=== PATIENT | female | born 1955 | race Caucasian/White ===

== ENCOUNTER 2019-10-22 10:30 | Outpatient (CLI) | payer MEDICARE, BC, SELFPAY ==
--- NOTE | 2019-10-28 23:46 | ONC FU_ITS ---
Dr. Brooks Patient Follow-Up Note Patient: MONET MUÑOZ Unit #: [id number]: 1955 Dicatated By: Clark Brooks M.D.Date of Visit:Oct 22, 2019 Onc Med Follow-up/Prog Note Chief Complaint: Elevated platelet count. History of Present Illness: This is a 64 year-old woman with a mild thrombocytosis. Over a period of several years she had been noted to have mildly elevated platelet counts. As of 02/18/2019 her CBC showed normal hemoglobin at 13.8 g with hematocrit 40.7%. The white blood cell count was 6600. The platelet count was mildly elevated at 409,000. Chem profile at that time was unremarkable except for slightly elevated SGOT and SGPT with normal alkaline phosphatase and bilirubin levels. A prior CBC from 10/11/2018 had shown similar findings with hemoglobin 13.8 g, white blood cell count 7400, and platelet count 449,000. I had seen her initially on 04/16/2019. Her further laboratory evaluation on 04/24/2019 included CBC showing hemoglobin 13.9 g, white blood cell count 6700, and mildly elevated platelet count at 407,000. Her LDH level was slightly elevated at 222/214 U/L. On her studies the JAK2 V617 F mutation, the JAK2 exon 12 mutation, the Calreticulin exon 9 mutation, and the MPL exon 10 mutation were not detected. With her platelet count is mildly elevated, observation/expectant management was recommended. Her other medical illnesses incldue hypertension, hyperlipidemia, GERD, and degenerative arthritis. She also has had significant depression. Her only surgery was a hysterectomy/bilateral salpingo-oophorectomy in 1998. She is a nonsmoker. INTERIM HISTORY: A repeat CBC in June 2019 showed similar findings with hemoglobin 13.9 g, white blood cell count 7500, and platelet count 406,000. She is seen for a follow-up visit. She says her energy comes and goes. Her activity is somewhat limited. Her ECOG score is 1. She has good appetite. She has gained weight. She does not have fever or night sweats. She occasionally wakes up feeling warm. She has no shortness of breath, cough, or chest pain. She has no GI/ complaints other than occasional acid reflux, which she manages with [id number]-[id number] medication. She has some low back pain, mainly when she gets first gets up in the morning or when she overdoes it. She has occasional headache. She has no focal neurologic symptoms. Medications: Align 1 Capsule Oral daily, Cyclobenzaprine HCl 1 (5 mg) Tablet Oral at bedtime, Esomeprazole Magnesium 1 (40 mg) Capsule Delayed Release Oral every am, Eucrisa (2 %) Ointment Topical Take as Directed, Ibuprofen Capsule Oral PRN, Losartan Potassium 1 (25 mg) Tablet Oral at bedtime, Losartan Potassium-HCTZ 1 (50-12.5 mg) Tablet Oral every am, Mometasone Furoate (0.1 %) Cream Topical Take as Directed, One-A-Day Womens VitaCraves 2 Tablet, chewable Oral daily, Simvastatin 1 (20 mg) Tablet Oral daily, SudoGest 1 (30 mg) Tablet Oral b.i.d. PRN, Zantac 1 (150 mg) Tablet Oral daily Allergies: Cephalexin, Codeine Sulfate, and Morphine Sulfate. Review of Systems: Constitutional - Her energy comes and goes. Her activity is somewhat limited. Her appetite is good. She has gained some weight. No fever or night sweats. She occasionally wakes up feeling warm. ECOG score is 1her sinuses lately have been okay., ENMT - Her sinuses are OK now. No mouth sores. No sore throat or difficulty swallowing, Hematologic/Lymphatic - No abnormal bruising or bleeding, Respiratory - No shortness of breath. No cough. No pleuritic pain or hemoptysis, Cardiovascular - No angina pain. No palpitations, Gastrointestinal - No nausea or vomiting. She occasionallly has acid reflux. No diarrhea or constipation. No blood in the stool or black stools, Genitourinary (F) - No dysuria or hematuria. No urinary frequency. No urgency or incontinence, Musculoskeletal - She has pain in her lower back, mainly when she first gets up in the morning or she overdoes it, Neurologic - She has occasional headache. No dizziness. No numbness/paresthesias or other focal neurologic symptoms, Psychiatric - She has s lot of stress. She still has some depression following her 's in June of 2017. She sometimes has difficulty sleeping. Vital Signs: Performed on Oct 22, 2019 10:03 Height - 63.00 in Weight - 148 lbs (HIGH) BSA - 1.70 sq.m BMI - 26.22 Temperature - 97.8 F (LOW) Pulse - 89 /min Respiration - 15 /min BP - 140/90 mm(hg) O2 Sat - 95 % (LOW) Pain - 3 Physical Examination: Constitutional - She looks good generally, Eyes - Sclerae nonicteric. Conjunctivae clear, ENMT - No lesions noted in the oral cavity, Hematologic/Lymphatic - No cervical, clavicular, or axillary adenopathy, Respiratory - Lungs are clear with good air movement bilaterally, Cardiovascular - Heart rhythm is regular. There is no murmur, gallop, or rub noted, Abdomen - Soft. Liver and spleen are not enlarged. There is no abdominal mass or ascites noted and there is no inguinal adenopathy, Extremities - No edema, Neurologic - No focal neurologic deficits noted. Lab/Imaging: Test performed on Oct 22, 2019 09:33 Glucose 105 mg/dL BUN 16 mg/dL Creatinine 0.74 mg/dL Cr Clearance (Est) 80.33 mL/min Sodium 138 mmol/L Potassium 4.1 mmol/L Chloride 96 mmol/L CO2 28 mmol/L Calcium 10.2 mg/dL Protein, Total 8.1 g/dL Albumin 5.3 g/dL Bilirubin, Total 0.5 mg/dL Alkaline Phosphatase 87 IU/L AST (SGOT) 42 IU/L ALT (SGPT) 60 IU/L WBC 6.5 10^9/L RBC 4.80 10^12/L HGB 14.5 g/dL HCT 43.7 % MCV 91.0 fl MCH 30.2 pg MCHC 33.2 g/dL RDW 13.1 % Platelet Count 418 10^9/L MPV 8.9 fL Neutrophils (Gran) 3.73 10^9/L Lymphocytes 1.98 10^9/L Monocytes 0.65 10^9/L Eosinophils 0.13 10^9/L Basophils 0.03 10^9/L Manual Lymphocytes 30 % Manual Monocytes 10 % Manual Eosinophils 2 % Manual Basophils 1 % Impression: 1. Patient with mild thrombocytosis of uncertain etiology. On her clonal studies the JAK2 V617 F mutation, the JAK2 exon 12 mutation, the Calreticulin exon 9 mutation, and the MPL exon 10 mutation were not detected. Her other medical illnesses include: 2. Hypertension. 3. Hyperlipidemia. 4. GERD. 5. Degenerative arthritis. 6. Eczema. 7. Depression. Thus far during follow-up her clinical status has remained stable, and her platelet count has remained just borderline high to slightly elevated. Overall, the clinical picture appears most consistent with normal variation. Plan: She remains on observation/expectant management. She is having laboratory studies rechecked with Dr. Lomeli every 6 months, which should be sufficient for monitoring the thrombocytosis. I will just plan to see her again in one year. Signed By: Clark Brooks M.D. <<Signature on File>>
== END 2019-10-22 10:31 | disposition home or self-care (01) ==
LOC: STFRANCIS 10-23 10:55
PROVIDERS: Family Provider Family Medicine; Visit Provider Internal Medicine Medical Oncology
DX: D47.3 Essential (hemorrhagic) thrombocythemia (principal); I10 Essential (primary) hypertension; E78.5 Hyperlipidemia, unspecified; K21.9 Gastro-esophageal reflux disease without esophagitis; M19.90 Unspecified osteoarthritis, unspecified site; F32.9 Major depressive disorder, single episode, unspecified; L30.9 Dermatitis, unspecified; R79.89 Other specified abnormal findings of blood chemistry
CPT/HCPCS: G0463

== ENCOUNTER 2020-10-20 10:00 | Outpatient (CLI) | payer MEDICARE, BC, SELFPAY ==
--- NOTE | 2020-10-23 16:32 | ONC FU_ITS ---
Dr. Brooks Patient Follow-Up Note Patient: She Baumann Unit #: [id number]: 1955 Dicatated By: Clark Brooks M.D.Date of Visit:Oct 20, 2020 Onc Med Follow-up/Prog Note Chief Complaint: Elevated platelet count. History of Present Illness: This is a 65 year-old woman with a mild thrombocytosis. Over a period of several years she had been noted to have mildly elevated platelet counts. As of 02/18/2019 her CBC showed normal hemoglobin at 13.8 g with hematocrit 40.7%. The white blood cell count was 6600. The platelet count was mildly elevated at 409,000. Chem profile at that time was unremarkable except for slightly elevated SGOT and SGPT with normal alkaline phosphatase and bilirubin levels. A prior CBC from 10/11/2018 had shown similar findings with hemoglobin 13.8 g, white blood cell count 7400, and platelet count 449,000. I had seen her initially on 04/16/2019. Her further laboratory evaluation on 04/24/2019 included CBC showing hemoglobin 13.9 g, white blood cell count 6700, and mildly elevated platelet count at 407,000. Her LDH level was slightly elevated at 222/214 U/L. On her studies the JAK2 V617 F mutation, the JAK2 exon 12 mutation, the Calreticulin exon 9 mutation, and the MPL exon 10 mutation were not detected. With her platelet count is mildly elevated, observation/expectant management was recommended. Her other medical illnesses incldue hypertension, hyperlipidemia, GERD, and degenerative arthritis. She also has had significant depression. Her only surgery was a hysterectomy/bilateral salpingo-oophorectomy in 1998. She is a nonsmoker. INTERIM HISTORY: A repeat CBC in June 2019 showed similar findings with hemoglobin 13.9 g, white blood cell count 7500, and platelet count 406,000. She continued observation/expectant management. She is seen for a follow-up visit. She has been feeling good generally. She had been concerned about possible cardiac symptoms, and she was evaluated with echocardiogram, which reportedly looked good. She has since then been eating better and she has been walking regularly. Her weight is down 10 pounds, and she has been feeling better generally. Her ECOG score is 0. She does not have fever or night sweats. She has no shortness of breath, cough, or chest pain. She has no GI or complaints. She has been having joint pain, particularly in the right knee and left shoulder. She is also been having back pain. She has been taking ibuprofen. She does not complain of headache or dizziness. She has no focal neurologic symptoms, but she says her hands and feet feel cold all the time. Medications: Cyclobenzaprine HCl 1 (5 mg) Tablet Oral daily, Esomeprazole Magnesium 1 (40 mg) Capsule Delayed Release Oral every am, Rqixpq-Ytova-Wftp Ac-Ca Fructo 1 Tablet Oral daily, hydroCHLOROthiazide (12.5 mg) Tablet Oral every am, Ibuprofen Capsule Oral PRN, Losartan Potassium 1 (25 mg) Tablet Oral b.i.d., One-A-Day Womens VitaCraves 2 Tablet, chewable Oral daily, Simvastatin 1 (20 mg) Tablet Oral daily, SudoGest 1 (30 mg) Tablet Oral b.i.d. PRN Allergies: Cephalexin, Codeine Sulfate, Doxycycline Monohydrate, and Morphine Sulfate. Vital Signs: Performed on Oct 20, 2020 10:26 Height - 63.00 in Weight - 135.6 lbs (LOW) BSA - 1.64 sq.m BMI - 24.02 Temperature - 98.5 F Pulse - 76 /min Respiration - 16 /min BP - 140/98 mm(hg) O2 Sat - 98 % Pain - 3 Physical Examination: Constitutional - She looks good generally, Eyes - Sclerae nonicteric. Conjunctivae clear, ENMT - No lesions noted in the oral cavity, Hematologic/Lymphatic - No cervical, clavicular, or axillary adenopathy, Respiratory - Lungs are clear with good air movement bilaterally, Cardiovascular - Heart rhythm is regular. There is a I/ systolic murmur. There is no gallop or rub noted, Abdomen - Soft. Liver and spleen are not enlarged. There is no abdominal mass or ascites noted and there is no inguinal adenopathy, Extremities - No edema. She has good peripheral pulses in both upper and lower extremities, Neurologic - No focal neurologic deficits noted. Lab/Imaging: Test performed on Oct 12, 2020 10:53 Cholesterol, Total 191 mg/dL Glucose 93 mg/dL LDH, Total 170 IU/L BUN 12 mg/dL HDL Cholesterol 67 mg/dL Creatinine 0.90 mg/dL LDL Cholesterol 107 mg/dL Cr Clearance (Est) 59.70 mL/min VLDL Cholesterol 124 mg/dL Triglycerides 86 mg/dL Sodium 136 mmol/L Potassium 4.5 mmol/L Chloride 96 mmol/L CO2 27 mmol/L Calcium 10.5 mg/dL Protein, Total 7.4 g/dL Albumin 5.3 g/dL Bilirubin, Total 0.4 mg/dL Alkaline Phosphatase 81 IU/L AST (SGOT) 25 IU/L ALT (SGPT) 21 IU/L WBC 7.5 10^9/L RBC 4.84 10^12/L HGB 14.6 g/dL HCT 44.6 % MCV 92.1 fl MCH 30.2 pg MCHC 32.7 g/dL RDW 11.9 % Platelet Count 444 10^9/L MPV 9.4 fL Neutrophils (Gran) 5.31 10^9/L Lymphocytes 1.63 10^9/L Monocytes 0.47 10^9/L Eosinophils 0.04 10^9/L Basophils 0.03 10^9/L Manual Lymphocytes 22 % Manual Monocytes 6 % Manual Eosinophils 1 % Manual Basophils 0 % Problem List: 1. Mild thrombocytosis of uncertain etiology. On her clonal studies the JAK2 V617 F mutation, the JAK2 exon 12 mutation, the Calreticulin exon 9 mutation, and the MPL exon 10 mutation were not detected. 2. Hypertension. 3. Hyperlipidemia. 4. GERD. 5. Degenerative arthritis. 6. Eczema. 7. Depression. Problems Addressed with this Encounter and Plan: Mild thrombocytosis of uncertain etiology. Essential thrombocythemia is not entirely excluded, but it does appear to be unlikely, as her molecular studies were negative and the thrombocytosis has not been progressive. As her platelet count remains just mildly elevated, she can remain on observation/expectant management. At this point she will continue her regular follow-up with Noa Chapa. I can see her again as needed if her platelet count increases or there is other significant change in her blood count. Signed By: Clark Brooks M.D. <<Signature on File>>
== END 2020-10-20 10:01 | disposition home or self-care (01) ==
LOC: ONCMED 10-21 09:41
PROVIDERS: Family Provider Family Medicine; Visit Provider Internal Medicine Medical Oncology
DX: D47.3 Essential (hemorrhagic) thrombocythemia (principal)
CPT/HCPCS: G0463

== ENCOUNTER 2022-08-08 13:34 | Outpatient (CLI) | payer MEDICARE, BC, SELFPAY ==
--- NOTE | 2022-08-08 13:39 | MM_ITS ---
WS: [id number] BILATERAL 3D TOMOSYNTHESIS DIGITAL SCREENING MAMMOGRAPHY WITH CAD CLINICAL INFORMATION: SCREENING HISTORY: Screening mammogram. No current complaints. COMPARISON: June 16, 2021 TECHNIQUE: Bilateral CC and MLO views. FINDINGS: Scattered fibroglandular densities bilaterally. No suspicious focal mass, asymmetry, calcifications, or architectural distortion. No evidence of malignancy. A few incidental punctate and lucent centered calcifications. MM/[id number] IMPRESSION: BI-RADS: 2-Benign FOLLOW UP: 1 Year Follow-up Recommend return to annual screening mammography.
== END 2022-08-08 13:35 | disposition home or self-care (01) ==
LOC: RAD 13:34
PROVIDERS: PCP Nurse Practitioner Family; Visit Provider Nurse Practitioner Family
DX: Z12.31 Encounter for screening mammogram for malignant neoplasm of breast (principal)
CPT/HCPCS: 77063; 77067

== ENCOUNTER → 2022-11-15 09:43 | Outpatient (BNVA) | payer MEDICARE, BC, SELFPAY | PROVIDERS: PCP Nurse Practitioner Family; Visit Provider Internal Medicine Rheumatology | DX: R76.8 Other specified abnormal immunological findings in serum (principal); L30.9 Dermatitis, unspecified; M25.50 Pain in unspecified joint; M19.90 Unspecified osteoarthritis, unspecified site; Z79.899 Other long term (current) drug therapy | CPT/HCPCS: 36415; 80076; 81001; 82306; 82565; 82570; 84156; 85025; 86160; 86162; 86200; 86235; 86255; 86376; 86800; 99204 ==

== ENCOUNTER → 2023-06-28 11:44 | Outpatient (BNVA) | payer MEDICARE, BC, SELFPAY | PROVIDERS: PCP Nurse Practitioner Family; Visit Provider Nurse Practitioner Family | DX: L30.0 Nummular dermatitis (principal); L82.1 Other seborrheic keratosis; L57.8 Other skin changes due to chronic exposure to nonionizing radiation; L81.4 Other melanin hyperpigmentation; D22.62 Melanocytic nevi of left upper limb, including shoulder | CPT/HCPCS: 99213 ==

== ENCOUNTER 2023-08-11 09:57 | Oncology outpatient (recurring) (ONCR) | payer MEDICARE, BC, SELFPAY ==
[2023-08-11 11:47] LABS: Basophils % 0.5 %; Eosinophils % 0.4 %; Hematocrit 38.2 % (36-47); Lymphocytes # 1.5 10^3/uL (0.8-4.8); Lymphocytes % 19.5 %; Mean Corpuscular HGB Conc 33.8 g/dL (30-55); Mean Corpuscular Hemoglobin 30.2 pg (27-33); Mean Corpuscular Volume 89.5 fl (85-98); Mean Platelet Volume 8.5 fL (7.4-10.4); Monocytes # 0.5 10^3/uL (0.2-0.9); Monocytes % 6.7 %; Neutrophils # 5.59 10^3/uL (1.8-7.7); Neutrophils % 72.5 %; Nucleated Red Blood Cells % 0 %; Platelet Count 452 10^3/cmm (157-399); Red Blood Count 4.27 10^6/uL (3.85-5.65); Red Cell Distribution Width 12.1 % (12.1-15.1); White Blood Count 7.71 10^3/uL (3.29-11.43)
[2023-08-11 11:58] LABS: LAB Peripheral Smear Sent for Review
[2023-08-11 12:07] LABS: Alanine Aminotransferase 22 U/L (0-33); Albumin Level 4.9 g/dL (3.5-5.2); Alkaline Phosphatase 81 U/L (35-105); Anion Gap 16.7 (5-19); Aspartate Amino Transferase 23 U/L (0-32); Blood Urea Nitrogen 13 mg/dL (8-23); Calcium 9.7 mg/dL (8.5-10.5); Carbon Dioxide 25 mmol/L (22-29); Chloride 96 mmol/L (98-107); Creatinine Clr Calc Pharmacy 60.2251; Ferritin 85 ng/mL (15-150); Globulin 2.3 g/dL (1.3-4.6); Glomerular Filtration Rate 99.4 mL/min (90-130); Glucose 91 mg/dL (65-115); Iron 68 ug/dL (37-145); Lactate Dehydrogenase 162 U/L (135-214); Osmolality Calculated 278 mOsm/kg (285-295); Percent Saturation 16.8 % (20-50); Potassium 3.7 mmol/L (3.5-5.1); Sodium 134 mmol/L (136-145); Total Bilirubin 0.5 mg/dL (0.15-1.2); Total Iron Binding Capacity 403 mcg/dl; Total Protein 7.2 g/dL (6.6-8.7); Unsaturated Iron Binding 335 ug/dL (112-347)
[2023-08-11 12:34] LABS: Hepatitis A Antibody IgM Non-Reactive (Nonreactive); Hepatitis B Core AB, Total Non-Reactive (Nonreactive); Hepatitis B Surface Antigen Non-Reactive (Nonreactive); Hepatitis C Virus Antibody Non-Reactive (Nonreactive)
[2023-08-11 12:36] LABS: Hepatitis B Surface AB < 3.5 (11.5-1000)
[2023-08-14 04:24] LABS: CMV DNA By PCR NOT DETECTED; CMV DNA, QN PCR NOT DETECTED Log IU/mL; SOURCE WHOLE BLOOD
[2023-08-14 06:55] LABS: Epstein Barr Virus DNA PCR NOT DETECTED; Epstein Barr Virus DNA QN PCR NOT DETECTED copies/mL; Epstein Barr Virus Source blood
[2023-08-15 10:23] LABS: Soluble Transferrin Receptor 0.97 mg/L (0.76-1.76)
[2023-08-19 18:25] LABS: CALR Exon 9 Mutation NOT DETECTED (NOT DETECTED); CSF3R Exon 14/17 Mutation NOT DETECTED (NOT DETECTED); JAK2 Exon 12 Mutation NOT DETECTED (NOT DETECTED); JAK2 V617 Block Specimen ID NG; JAK2 V617 Clinical Indication NG; JAK2 V617 Mutation NOT DETECTED (NOT DETECTED); JAK2 V617 Specimen Source NG; MPL Exon 12 Mutation NOT DETECTED (NOT DETECTED)
== END 2023-08-31 23:59 | disposition home or self-care (01) ==
PROVIDERS: PCP Nurse Practitioner Family; Visit Provider Internal Medicine
DX: D75.839 Thrombocytosis, unspecified (principal); R79.0 Abnormal level of blood mineral; M25.50 Pain in unspecified joint; Z79.899 Other long term (current) drug therapy; Z13.79 Encounter for other screening for genetic and chromosomal anomalies; R53.83 Other fatigue
CPT/HCPCS: 36415; 80053; 81270; 81279; 81339; 81479; 82728; 83540; 83550; 83615; 84238; 85025; 86705; 86706; 86709; 86803; 87340; 87496; 87798; 99204

== ENCOUNTER 2023-11-09 13:35 | Outpatient (CLI) | payer MEDICARE, BC, SELFPAY ==
--- NOTE | 2023-11-09 13:39 | USCV_ITS ---
Scot Baumannia Age: 68 Gender: F : 1955 Exam Date: 11/09/2023 14:17 Ordering Phys: Noa Chapa Technologist: YENNY [place]am [place] [facility] [place] Ind[place]: Family history of heart disease. Recheck BP: 150 / 93 HR: 79 Rhythm: Sinus Technical Quality: Adequate MEASUREMENTS (Male / Female) Normal Values 2D ECHO LV Diastolic Diameter PLAX 3.7 cm 4.2 - 5.9 / 3.9 - 5.3 cm LV Systolic Diameter PLAX 2.9 cm LV Chamber Size 2.6 cm IVS Diastolic Thickness 1.2 cm 0.6 - 1.0 / 0.6 - 0.9 cm IVS Systolic Thickness 1.1 cm LVPW Diastolic Thickness 1.2 cm 0.6 - 1.0 / 0.6 - 0.9 cm LVPW Systolic Thickness 1.2 cm RV Chamber Size 2.5 cm LVOT Diameter 2.0 cm LV Ejection Fraction 2D Teich 50.4 % LV Ejection Fraction MOD 2C 71.7 % LV Ejection Fraction 2C AL 72.5 % LA Diameter 2.2 cm LA Width 1.6 cm LA Height 2.5 cm RA Width 2.1 cm RA Height 3.1 cm Aorta at Sinotubular Diameter 3.5 cm IVC Diameter 1.2 cm M-MODE Aortic Annulus Diameter 3.6 cm LA Ao Ratio MM 0.6 MV E Point Septal Separation 0.1 cm DOPPLER AV Peak Velocity 129.0 cm/s LVOT Peak Velocity 119.0 cm/s AV Area Cont Eq vti 3.5 cm squared AV Area Cont Eq pk 2.9 cm squared MV Area PHT 4.5 cm squared Mitral E to A Ratio 0.7 MV E' Velocity 30.5 cm/s Mitral E to MV E' Ratio 6.0 Mitral E to LV E' Lateral Ratio 7.0 Mitral E to LV E' Septal Ratio 5.2 TR Peak Velocity 183.1 cm/s TR Peak Gradient 13.4 mmHg TR Mean Velocity 146.7 cm/s TR Mean Gradient 9.6 mmHg TR Velocity Time Integral 51.3 cm TV Peak E Velocity 50.0 cm/s Right Atrial Pressure 3.0 mmHg Pulmonary Artery Systolic Pressu 16.4 mmHg PV Peak Velocity 0.0 cm/s RV Acceleration Time 0.2 s RV Ejection Time 0.3 s RV AcT/ET 0.6 FINDINGS Left Ventricle Left ventricle is normal in size. LV systolic function is normal with EF of 60 to 65%. No regional wall motion abnormalities are seen. Grade 1 diastolic dysfunction Right Ventricle Grossly normal Right Atrium Normal in size Left Atrium Normal in size Mitral Valve Structurally normal mitral valve. Mild mitral regurgitation Aortic Valve Structurally normal aortic valve. Moderate aortic regurgitation. No significant stenosis. Tricuspid Valve Mild tricuspid regurgitation. Insufficient TR jet to evaluate RVSP. Pulmonic Valve Mild pulmonic regurgitation Pericardium Normal Aorta Ascending aorta is mildly dilated with diameter of 3.6 cm IVC Appears to be normal CONCLUSIONS LV systolic function is normal with EF of 60-65% Grade 1 diastolic dysfunction Mild mitral regurgitation Moderate aortic regurgitation Mild tricuspid regurgitation Mild pulmonic regurgitation No comparison studies are available. Alcides Jurado MD (Electronically Signed) Final Date: 23 November 2023 10:18 S
== END 2023-11-09 13:36 | disposition home or self-care (01) ==
LOC: RAD 13:36
PROVIDERS: PCP Nurse Practitioner Family; Visit Provider Nurse Practitioner Family
DX: I08.8 Other rheumatic multiple valve diseases (principal); Z82.49 Family history of ischemic heart disease and other diseases of the circulatory system
CPT/HCPCS: 93306

== ENCOUNTER 2023-11-09 14:42 | Outpatient (CLI) | payer MEDICARE, BC, SELFPAY ==
[2023-11-09 15:19] LABS: Basophils % 0.4 %; Eosinophils % 0.4 %; Lymphocytes # 1.8 10^3/uL (0.8-4.8); Lymphocytes % 22.2 %; Mean Corpuscular HGB Conc 33.2 g/dL (30-55); Mean Corpuscular Hemoglobin 29.4 pg (27-33); Mean Corpuscular Volume 88.6 fl (85-98); Mean Platelet Volume 8.3 fL (7.4-10.4); Monocytes # 0.5 10^3/uL (0.2-0.9); Monocytes % 6.3 %; Neutrophils # 5.72 10^3/uL (1.8-7.7); Neutrophils % 70.6 %; Nucleated Red Blood Cells % 0 %; Platelet Count 481 10^3/cmm (157-399); Red Blood Count 4.63 10^6/uL (3.85-5.65); Red Cell Distribution Width 12.4 % (12.1-15.1)
[2023-11-09 15:37] LABS: Alanine Aminotransferase 20 U/L (0-33); Albumin Level 4.8 g/dL (3.5-5.2); Alkaline Phosphatase 81 U/L (35-105); Anion Gap 14.8 (5-19); Aspartate Amino Transferase 24 U/L (0-32); Blood Urea Nitrogen 11 mg/dL (8-23); Calcium 9.9 mg/dL (8.5-10.5); Carbon Dioxide 28 mmol/L (22-29); Chloride 92 mmol/L (98-107); Ferritin 104 ng/mL (15-150); Globulin 2.9 g/dL (1.3-4.6); Glomerular Filtration Rate 122.3 mL/min (90-130); Glucose 103 mg/dL (65-115); Iron 112 ug/dL (37-145); Osmolality Calculated 272 mOsm/kg (285-295); Percent Saturation 26.9 % (20-50); Potassium 3.8 mmol/L (3.5-5.1); Sodium 131 mmol/L (136-145); Total Bilirubin 0.6 mg/dL (0.15-1.2); Total Iron Binding Capacity 416 mcg/dl; Total Protein 7.7 g/dL (6.6-8.7); Unsaturated Iron Binding 304 ug/dL (112-347)
[2023-11-14 14:00] LABS: Soluble Transferrin Receptor 0.97 mg/L (0.76-1.76)
== END 2023-11-09 14:43 | disposition home or self-care (01) ==
LOC: LAB 14:45
PROVIDERS: PCP Nurse Practitioner Family; Visit Provider Internal Medicine
DX: R79.0 Abnormal level of blood mineral (principal); D75.839 Thrombocytosis, unspecified; M25.50 Pain in unspecified joint
CPT/HCPCS: 36415; 80053; 82728; 83540; 83550; 84238; 85025

== ENCOUNTER → 2023-12-06 10:18 | Outpatient (BNVA) | payer MEDICARE, BC, SELFPAY | PROVIDERS: PCP Nurse Practitioner Family; Visit Provider Nurse Practitioner Family | DX: L57.8 Other skin changes due to chronic exposure to nonionizing radiation (principal); L81.4 Other melanin hyperpigmentation; D22.4 Melanocytic nevi of scalp and neck; L82.1 Other seborrheic keratosis | CPT/HCPCS: 99213 ==

== ENCOUNTER 2023-12-07 08:26 | Oncology outpatient (recurring) (ONCR) | payer MEDICARE, BC, SELFPAY ==
[2023-12-07 08:56] VITALS: BP 155/92; PULSE 88; RESP 18; TEMP 36.6; O2SAT 94
[2023-12-07 09:04] LABS: Basophils % 0.2 %; Eosinophils % 0.5 %; Hematocrit 39.1 % (36-47); Lymphocytes # 1.5 10^3/uL (0.8-4.8); Lymphocytes % 18.4 %; Mean Corpuscular HGB Conc 34.3 g/dL (30-55); Mean Corpuscular Hemoglobin 30.6 pg (27-33); Mean Corpuscular Volume 89.3 fl (85-98); Mean Platelet Volume 8.1 fL (7.4-10.4); Monocytes # 0.6 10^3/uL (0.2-0.9); Monocytes % 6.7 %; Neutrophils % 73.6 %; Nucleated Red Blood Cells % 0 %; Platelet Count 448 10^3/cmm (157-399); Red Blood Count 4.38 10^6/uL (3.85-5.65); Red Cell Distribution Width 12.5 % (12.1-15.1)
[2023-12-07 09:30] LABS: Alanine Aminotransferase 21 U/L (0-33); Albumin Level 4.7 g/dL (3.5-5.2); Alkaline Phosphatase 78 U/L (35-105); Anion Gap 11.3 (5-19); Aspartate Amino Transferase 27 U/L (0-32); Blood Urea Nitrogen 10 mg/dL (8-23); Calcium 9.8 mg/dL (8.5-10.5); Carbon Dioxide 30 mmol/L (22-29); Chloride 96 mmol/L (98-107); Creatinine Clr Calc Pharmacy 59.0797; Ferritin 97 ng/mL (15-150); Globulin 2.6 g/dL (1.3-4.6); Glomerular Filtration Rate 99.1 mL/min (90-130); Glucose 91 mg/dL (65-115); Iron 84 ug/dL (37-145); Osmolality Calculated 275 mOsm/kg (285-295); Percent Saturation 20.4 % (20-50); Potassium 4.3 mmol/L (3.5-5.1); Sodium 133 mmol/L (136-145); Total Bilirubin 0.5 mg/dL (0.15-1.2); Total Iron Binding Capacity 410 mcg/dl; Total Protein 7.3 g/dL (6.6-8.7); Unsaturated Iron Binding 326 ug/dL (112-347)
[2023-12-11 12:54] LABS: Soluble Transferrin Receptor 0.97 mg/L (0.76-1.76)
[2023-12-12 18:34] LABS: P190 BCR ALB1 NOT DETECTED; P190 BCR ALB1 Yes Test Yes; P210 BCR ALB1 NOT DETECTED; P210 BCR ALB1 Yes Test Yes; Prior Results NG; Source whole blood
== END 2023-12-31 23:59 | disposition home or self-care (01) ==
PROVIDERS: PCP Nurse Practitioner Family; Visit Provider Internal Medicine
DX: D75.839 Thrombocytosis, unspecified (principal); R79.0 Abnormal level of blood mineral; M25.50 Pain in unspecified joint; Z79.899 Other long term (current) drug therapy; Z13.79 Encounter for other screening for genetic and chromosomal anomalies; Z53.9 Procedure and treatment not carried out, unspecified reason
CPT/HCPCS: 36415; 80053; 81206; 81207; 82728; 83540; 83550; 84238; 85025; 99213

== ENCOUNTER 2024-03-12 11:24 | Oncology outpatient (recurring) (ONCR) | payer MEDICARE, BC, SELFPAY ==
[2024-03-12 11:43] LABS: Basophils % 0.3 %; Eosinophils # 0.1 10^3/uL (0.0-0.8); Eosinophils % 1.7 %; Hematocrit 39.7 % (36-47); Lymphocytes # 1.4 10^3/uL (0.8-4.8); Mean Corpuscular HGB Conc 33.8 g/dL (30-55); Mean Corpuscular Hemoglobin 29.8 pg (27-33); Mean Corpuscular Volume 88.2 fl (85-98); Mean Platelet Volume 8.3 fL (7.4-10.4); Monocytes # 0.4 10^3/uL (0.2-0.9); Monocytes % 6.6 %; Neutrophils # 4.41 10^3/uL (1.8-7.7); Neutrophils % 69.2 %; Nucleated Red Blood Cells % 0 %; Platelet Count 423 10^3/cmm (157-399); Red Cell Distribution Width 11.9 % (12.1-15.1); White Blood Count 6.37 10^3/uL (3.29-11.43)
[2024-03-12 12:00] LABS: Alanine Aminotransferase 87 U/L (0-33); Alkaline Phosphatase 77 U/L (35-105); Anion Gap 13.4 (5-19); Aspartate Amino Transferase 72 U/L (0-32); Blood Urea Nitrogen 8 mg/dL (8-23); Calcium 9.8 mg/dL (8.5-10.5); Carbon Dioxide 30 mmol/L (22-29); Chloride 89 mmol/L (98-107); Ferritin 139 ng/mL (15-150); Globulin 2.5 g/dL (1.3-4.6); Glomerular Filtration Rate 122.3 mL/min (90-130); Glucose 115 mg/dL (65-115); Iron 83 ug/dL (37-145); Osmolality Calculated 267 mOsm/kg (285-295); Percent Saturation 21.9 % (20-50); Potassium 3.4 mmol/L (3.5-5.1); Sodium 129 mmol/L (136-145); Total Bilirubin 0.7 mg/dL (0.15-1.2); Total Iron Binding Capacity 378 mcg/dl; Total Protein 7.5 g/dL (6.6-8.7); Unsaturated Iron Binding 295 ug/dL (112-347)
== END 2024-03-31 23:59 | disposition home or self-care (01) ==
PROVIDERS: Internal Medicine; PCP Nurse Practitioner Family; Visit Provider Nurse Practitioner Family
DX: D75.839 Thrombocytosis, unspecified (principal); R79.0 Abnormal level of blood mineral; M25.50 Pain in unspecified joint; Z79.899 Other long term (current) drug therapy
CPT/HCPCS: 36415; 80053; 82728; 83540; 83550; 85025; 99214

== ENCOUNTER 2024-06-18 13:11 | Oncology outpatient (recurring) (ONCR) | payer MEDICARE, BC, SELFPAY ==
[2024-06-18 14:06] LABS: Basophils % 0.4 %; Eosinophils % 0.4 %; Hematocrit 40.6 % (36-47); Lymphocytes # 1.4 10^3/uL (0.8-4.8); Lymphocytes % 17.9 %; Mean Corpuscular HGB Conc 33.3 g/dL (30-55); Mean Corpuscular Hemoglobin 30.3 pg (27-33); Mean Corpuscular Volume 91.2 fl (85-98); Mean Platelet Volume 8.4 fL (7.4-10.4); Monocytes # 0.7 10^3/uL (0.2-0.9); Monocytes % 9.5 %; Neutrophils # 5.55 10^3/uL (1.8-7.7); Neutrophils % 71.4 %; Nucleated Red Blood Cells % 0 %; Platelet Count 450 10^3/cmm (157-399); Red Blood Count 4.45 10^6/uL (3.85-5.65); Red Cell Distribution Width 12.4 % (12.1-15.1); White Blood Count 7.77 10^3/uL (3.29-11.43)
[2024-06-18 14:21] LABS: Alanine Aminotransferase 15 U/L (0-33); Albumin Level 4.8 g/dL (3.5-5.2); Alkaline Phosphatase 81 U/L (35-105); Anion Gap 16.3 (5-19); Aspartate Amino Transferase 19 U/L (0-32); Blood Urea Nitrogen 13 mg/dL (8-23); Calcium 9.9 mg/dL (8.5-10.5); Carbon Dioxide 28 mmol/L (22-29); Chloride 96 mmol/L (98-107); Ferritin 77 ng/mL (15-150); Globulin 2.4 g/dL (1.3-4.6); Glomerular Filtration Rate 99.1 mL/min (90-130); Glucose 78 mg/dL (65-115); Iron 93 ug/dL (37-145); Osmolality Calculated 281 mOsm/kg (285-295); Percent Saturation 25.1 % (20-50); Potassium 4.3 mmol/L (3.5-5.1); Sodium 136 mmol/L (136-145); Total Bilirubin 0.5 mg/dL (0.15-1.2); Total Iron Binding Capacity 370 mcg/dl; Total Protein 7.2 g/dL (6.6-8.7); Unsaturated Iron Binding 277 ug/dL (112-347)
== END 2024-07-01 23:59 | disposition home or self-care (01) ==
LOC: ONCMED 13:12
PROVIDERS: PCP Nurse Practitioner Family; Visit Provider Nurse Practitioner Family
DX: D75.839 Thrombocytosis, unspecified (principal)
CPT/HCPCS: 36415; 80053; 82728; 83540; 83550; 85025

== ENCOUNTER → 2024-06-28 11:00 | Outpatient (BNVA) | payer MEDICARE, BC, SELFPAY | PROVIDERS: PCP Nurse Practitioner Family; Visit Provider Nurse Practitioner Family | DX: L57.8 Other skin changes due to chronic exposure to nonionizing radiation (principal); L81.4 Other melanin hyperpigmentation; D22.4 Melanocytic nevi of scalp and neck; L82.1 Other seborrheic keratosis; Z91.014 Allergy to mammalian meats | CPT/HCPCS: 99213 ==

== ENCOUNTER 2024-07-25 13:45 | Oncology outpatient (recurring) (ONCR) | payer MEDICARE, BC, SELFPAY ==
[2024-07-25 14:16] LABS: Basophils % 0.3 %; Eosinophils # 0.1 10^3/uL (0.0-0.8); Eosinophils % 0.7 %; Hematocrit 38.6 % (36-47); Lymphocytes # 1.6 10^3/uL (0.8-4.8); Lymphocytes % 22.9 %; Mean Corpuscular HGB Conc 32.9 g/dL (30-55); Mean Corpuscular Hemoglobin 29.6 pg (27-33); Mean Platelet Volume 8.8 fL (7.4-10.4); Monocytes # 0.6 10^3/uL (0.2-0.9); Neutrophils # 4.69 10^3/uL (1.8-7.7); Neutrophils % 67.8 %; Nucleated Red Blood Cells % 0 %; Platelet Count 425 10^3/cmm (157-399); Red Blood Count 4.29 10^6/uL (3.85-5.65); White Blood Count 6.91 10^3/uL (3.29-11.43)
[2024-07-25 14:43] LABS: Alanine Aminotransferase 17 U/L (0-33); Albumin Level 4.8 g/dL (3.5-5.2); Alkaline Phosphatase 86 U/L (35-105); Anion Gap 14.2 (5-19); Aspartate Amino Transferase 22 U/L (0-32); Blood Urea Nitrogen 13 mg/dL (8-23); Calcium 9.4 mg/dL (8.5-10.5); Carbon Dioxide 28 mmol/L (22-29); Chloride 99 mmol/L (98-107); Creatinine Clr Calc Pharmacy 58.5294; Ferritin 67 ng/mL (15-150); Globulin 2.2 g/dL (1.3-4.6); Glucose 96 mg/dL (65-115); Iron 83 ug/dL (37-145); Osmolality Calculated 284 mOsm/kg (285-295); Percent Saturation 21.5 % (20-50); Potassium 4.2 mmol/L (3.5-5.1); Sodium 137 mmol/L (136-145); Total Bilirubin 0.5 mg/dL (0.15-1.2); Total Iron Binding Capacity 386 mcg/dl; Unsaturated Iron Binding 303 ug/dL (112-347)
== END 2024-08-01 23:59 | disposition home or self-care (01) ==
PROVIDERS: PCP Nurse Practitioner Family; Visit Provider Nurse Practitioner Family
DX: D75.839 Thrombocytosis, unspecified (principal); R79.0 Abnormal level of blood mineral; M25.50 Pain in unspecified joint; Z79.899 Other long term (current) drug therapy
CPT/HCPCS: 36415; 80053; 82728; 83540; 83550; 85025; 99213

== ENCOUNTER → 2024-09-30 10:45 | Outpatient (BNVA) | payer MEDICARE, BC, SELFPAY | PROVIDERS: PCP Nurse Practitioner Family; Visit Provider Nurse Practitioner Family | DX: L57.8 Other skin changes due to chronic exposure to nonionizing radiation (principal); L81.4 Other melanin hyperpigmentation; L82.1 Other seborrheic keratosis; S20.161A Insect bite (nonvenomous) of breast, right breast, initial encounter; X58.XXXA Exposure to other specified factors, initial encounter | CPT/HCPCS: 99214 ==

== ENCOUNTER 2024-12-05 09:07 | Oncology outpatient (recurring) (ONCR) | payer MEDICARE, BC, SELFPAY ==
[2024-12-05 09:44] LABS: Basophils % 0.4 %; Eosinophils % 0.6 %; Hematocrit 40.2 % (36-47); Lymphocytes # 1.5 10^3/uL (0.8-4.8); Lymphocytes % 21.6 %; Mean Corpuscular HGB Conc 32.3 g/dL (30-55); Mean Corpuscular Hemoglobin 29.7 pg (27-33); Mean Platelet Volume 8.8 fL (7.4-10.4); Monocytes # 0.5 10^3/uL (0.2-0.9); Monocytes % 7.7 %; Neutrophils # 4.79 10^3/uL (1.8-7.7); Neutrophils % 69.6 %; Nucleated Red Blood Cells % 0 %; Platelet Count 407 10^3/cmm (157-399); Red Blood Count 4.37 10^6/uL (3.85-5.65); White Blood Count 6.89 10^3/uL (3.29-11.43)
[2024-12-05 10:06] LABS: Alanine Aminotransferase 21 U/L (0-33); Albumin Level 4.9 g/dL (3.5-5.2); Alkaline Phosphatase 92 U/L (35-105); Anion Gap 13.8 (5-19); Aspartate Amino Transferase 24 U/L (0-32); Blood Urea Nitrogen 14 mg/dL (8-23); Calcium 9.7 mg/dL (8.5-10.5); Carbon Dioxide 28 mmol/L (22-29); Chloride 99 mmol/L (98-107); Ferritin 66 ng/mL (15-150); Glucose 105 mg/dL (65-115); Iron 140 ug/dL (37-145); Lactate Dehydrogenase 157 U/L (135-214); Osmolality Calculated 285 mOsm/kg (285-295); Percent Saturation 34.5 % (20-50); Potassium 3.8 mmol/L (3.5-5.1); Sodium 137 mmol/L (136-145); Total Bilirubin 0.6 mg/dL (0.15-1.2); Total Iron Binding Capacity 405 mcg/dl; Total Protein 6.9 g/dL (6.6-8.7); Unsaturated Iron Binding 265 ug/dL (112-347)
== END 2024-12-30 23:59 | disposition home or self-care (01) ==
PROVIDERS: Nurse Practitioner Family; PCP Nurse Practitioner Family; Visit Provider Internal Medicine
DX: D75.839 Thrombocytosis, unspecified (principal); R79.0 Abnormal level of blood mineral; Z91.014 Allergy to mammalian meats; Z98.890 Other specified postprocedural states
CPT/HCPCS: 36415; 80053; 82728; 83540; 83550; 83615; 85025; 99213

== ENCOUNTER → 2025-02-28 10:13 | Outpatient (BNVA) | payer MEDICARE, BC, SELFPAY | PROVIDERS: PCP Nurse Practitioner Family; Visit Provider Nurse Practitioner Family | DX: L82.1 Other seborrheic keratosis (principal); L57.8 Other skin changes due to chronic exposure to nonionizing radiation; L81.4 Other melanin hyperpigmentation; Z91.014 Allergy to mammalian meats | CPT/HCPCS: 99213 ==

== ENCOUNTER 2025-04-24 09:16 | Oncology outpatient (recurring) (ONCR) | payer MEDICARE, BC, SELFPAY ==
[2025-04-24 09:39] LABS: Hematocrit 41.7 % (36-47); Hemoglobin 13.80 g/dL (11.27-16.99); Mean Corpuscular HGB Conc 33.1 g/dL (30-55); Mean Corpuscular Hemoglobin 29.2 pg (27-33); Mean Corpuscular Volume 88.2 fl (85-98); Nucleated Red Blood Cells % 0 %; Platelet Count 413 10^3/cmm (157-399); Red Blood Count 4.73 10^6/uL (3.85-5.65); White Blood Count 6.72 10^3/uL (3.29-11.43)
[2025-04-24 09:59] LABS: Alanine Aminotransferase 17 U/L (0-33); Albumin Level 4.8 g/dL (3.5-5.2); Alkaline Phosphatase 107 U/L (35-105); Anion Gap 18.0 (5-19); Aspartate Amino Transferase 22 U/L (0-32); Blood Urea Nitrogen 16 mg/dL (8-23); Calcium 9.9 mg/dL (8.5-10.5); Carbon Dioxide 26 mmol/L (22-29); Chloride 96 mmol/L (98-107); Ferritin 39 ng/mL (15-150); Globulin 2.6 g/dL (1.3-4.6); Glucose 113 mg/dL (65-115); Iron 110 ug/dL (37-145); Osmolality Calculated 284 mOsm/kg (285-295); Potassium 4.0 mmol/L (3.5-5.1); Sodium 136 mmol/L (136-145); Total Iron Binding Capacity 442 mcg/dl; Total Protein 7.4 g/dL (6.6-8.7); Unsaturated Iron Binding 332 ug/dL (112-347)
[2025-04-24 10:14] LABS: Vitamin B12 512 pg/mL (232-1245)
== END 2025-05-01 23:59 | disposition home or self-care (01) ==
LOC: ONCMED 09:17
PROVIDERS: PCP Nurse Practitioner Family; Visit Provider Internal Medicine
DX: D75.839 Thrombocytosis, unspecified (principal); R79.0 Abnormal level of blood mineral; M25.50 Pain in unspecified joint
CPT/HCPCS: 36415; 80053; 82607; 82728; 82746; 83010; 83540; 83550; 83615; 85025; 85045; 86140; 99213

== ENCOUNTER → 2025-09-24 09:55 | Outpatient (BNVA) | payer MEDICARE, BC, SELFPAY | PROVIDERS: PCP Nurse Practitioner Family; Visit Provider Nurse Practitioner Family | DX: L30.0 Nummular dermatitis (principal); L85.3 Xerosis cutis; L29.89 Other pruritus; L73.8 Other specified follicular disorders; L82.1 Other seborrheic keratosis; Z91.014 Allergy to mammalian meats | CPT/HCPCS: 99214 ==